=== PATIENT | male | born 1990 | race Two or more races ===

== ENCOUNTER → 2022-12-15 | Outpatient (CLI) | payer MEDICAID | END | disposition home or self-care (01) | LOC: RT 14:53 | PROVIDERS: ATTEND Internal Medicine Pulmonary Disease | DX: R06.09 Other forms of dyspnea (principal); J45.40 Moderate persistent asthma, uncomplicated; R06.02 Shortness of breath | CPT/HCPCS: 94060; 94727; 94729 ==